=== PATIENT | male | born 1990 | race Two or more races ===

== ENCOUNTER 2018-01-24 09:45 | Emergency (ER) | payer SELFPAY ==
[~2018-01-24] VITALS: Ht 162.6 cm; Wt 100.0 kg
[2018-01-24] MEDS ORDERED: KETOROLAC 30MG/ML VIAL IV ONE (13:45)
[2018-01-24] MEDS ORDERED: METHOCARBAMOL 500MG TABLET PO ONE (13:45)
[2018-01-24 14:14] VITALS: BP 110/63
[2018-01-24] MEDS ORDERED: DEXAMETHASONE 10 MG/ML VIAL IM ONE (16:30)
== END 2018-01-24 16:55 | disposition home or self-care (01) ==
LOC: ER 12:31
DX: M54.5 Low back pain (principal); M47.897 Other spondylosis, lumbosacral region; M51.26 Other intervertebral disc displacement, lumbar region; R53.1 Weakness
CPT/HCPCS: 72148; 96372; 96374; 99284; J1100; J1885